=== PATIENT | female | born 1950 ===

== ENCOUNTER 2017-12-05 18:13 | Emergency (ER) | payer BC, MEDICARE ==
[2017-12-05 18:14] VITALS: BMI 23.8
[2017-12-05 18:36] VITALS: RESP 18
[2017-12-05] MEDS ORDERED: Sodium Chloride 0.9% 500 ML IV STA (18:53)
[2017-12-05 19:37] LABS: BASO # 0.05 K/mm3 (0.0-2.0); BASO % 0.4 % (0.0-3.0); EOS # 0.2 (0.0-0.7); EOS % 1.8 % (1.5-5.0); GRAN # 7.51 (1.4-6.5); GRAN % 62.8 % (50.0-68.0); HEMOGLOBIN 14.8 g/dL (12.0-16.0); LYMPH # 3.3 (1.2-3.4); LYMPH % 27.1 % (22.0-35.0); MEAN CELL VOLUME 87.3 fl (80.0-105.0); MEAN CORPUSCULAR HEMOGLOBIN 29.8 pg (25.0-35.0); MEAN CORPUSCULAR HGB CONC 34.1 g/dl (31.0-37.0); MEAN PLATELET VOLUME 9.7 fl (7.0-11.0); MONO % 7.9 % (1.0-6.0); RBC 4.97 10^6/uL (3.5-6.1); RED CELL DISTRIBUTION WIDTH 12.7 % (11.5-14.5)
[2017-12-05 19:45] LABS: ALB/GLOB RATIO 1.5 (1.1-1.8); ALBUMIN 4.9 g/dL (3.0-4.8); ALT/SGPT 34 U/L (7-56); AST/SGOT 32 U/L (14-36); BLOOD UREA NITROGEN 11 mg/dL (7-21); CALCIUM 9.5 mg/dL (8.4-10.5); GFR NON-AFRICAN AMERICAN > 60
[2017-12-05] MEDS ORDERED: Iohexol 350 MG/100 ML VIAL ONE (20:05)
--- NOTE | 2017-12-05 20:48 | ED PDOC ---
Arrival/HPI - General Chief Complaint: ENT Problem Time Seen by Provider: 12/05/17 18:28 Historian: Patient - History of Present Illness Narrative History of Present Illness (Text): 12/05/17 20:48 67yr old female presents today with right sided face pain. pt states she was eating a salad with lemon and noticed that the saliva increased and then she suddenly developed severe pain and swelling to the right side of the neck and face around the parotid gland. pt denies fever/chills. denies dental pain. pt states she has hx of TMJ but states the pain is different. pt denies dizziness or weakness. no medications were taken for pain at home. no other complaints. Past Medical History - Provider Review Nursing Documentation Reviewed: Yes - Travel History Have you recently traveled outside [place] w/in the past 3 mons?: No - Infectious Disease Hx of Infectious Diseases: None - Tetanus Immunization Tetanus Immunization: Unknown - Reproductive Menopause: No - Cardiac Hx Cardiac Disorders: Yes Hx Hypertension: Yes - Pulmonary Hx Chronic Obstructive Pulmonary Disease (COPD): Yes - Neurological Hx Neurological Disorder: No Other/Comment: AAOX3 - HEENT Hx HEENT Disorder: No - Renal Hx Renal Disorder: No - Endocrine/Metabolic Hx Endocrine Disorders: No - Hematological/Oncological Hx Blood Disorders: No Hx Blood Transfusions: No - Integumentary Hx Dermatological Disorder: No - Musculoskeletal/Rheumatological Hx Arthritis: Yes - Gastrointestinal Hx Gastrointestinal Disorders: Yes Hx Colitis: Yes (last hospitalization- 2 weeks ago) Other/Comment: c.diff - Genitourinary/Gynecological Hx Genitourinary Disorders: No - Psychiatric Hx Psychophysiologic Disorder: No Hx Substance Use: No - Surgical History Hx Appendectomy: Yes Hx Cholecystectomy: Yes Hx Tonsillectomy: Yes - Anesthesia Hx Anesthesia: Yes Hx Anesthesia Reactions: No Hx Malignant Hyperthermia: No - Suicidal Assessment Feels Threatened In Home Enviroment: No Family/Social History - Physician Review Nursing Documentation Reviewed: Yes Family/Social History: Unknown Family HX Smoking Status: Former Smoker Hx Alcohol Use: No Hx Substance Use: No Allergies/Home Meds Allergies/Adverse Reactions: Allergies vancomycin Allergy (Severe, Verified 12/06/15 17:23) RASH codeine Allergy (Verified 12/05/17 18:36) RASH moxifloxacin HCl [From Avelox] Allergy (Verified 12/05/17 18:36) RASH Home Medications: Home Meds Medication Instructions Recorded Confirmed Clopidogrel [Plavix] 75 mg PO DAILY 11/23/13 12/06/15 Rosuvastatin Calcium [Crestor] 10 mg PO DAILY 12/06/15 12/06/15 Review of Systems - Review of Systems Constitutional: absent: Fatigue, Fevers ENT: Other (right sided facial pain/ swelling). absent: Sore Throat, Sinus Congestion Respiratory: absent: SOB, Cough Cardiovascular: absent: Chest Pain, Palpitations Gastrointestinal: absent: Abdominal Pain, Nausea, Vomiting Genitourinary Female: absent: Dysuria, Frequency, Hematuria Musculoskeletal: Neck Pain. absent: Arthralgias, Back Pain Skin: absent: Rash, Pruritis Neurological: absent: Headache, Dizziness Psychiatric: absent: Anxiety, Depression Physical Exam Vital Signs Reviewed: Yes Vital Signs Temp Pulse Resp BP Pulse Ox 12/05/17 21:32 98 F 60 18 142/73 97 12/05/17 18:30 98.3 F 54 L 18 150/76 98 Temperature: Afebrile Blood Pressure: Normal Pulse: Regular Respiratory Rate: Normal Appearance: Positive for: Well-Appearing, Non-Toxic, Comfortable Pain Distress: None Mental Status: Positive for: Alert and Oriented X 3 - Systems Exam Head: Present: Atraumatic, Swelling (+ swelling and tenderness noted to the right parotid gland and lateral neck. ) Mouth: Present: Moist Mucous Membranes Neck: Present: Normal Range of Motion Respiratory/Chest: Present: Clear to Auscultation, Good Air Exchange. No: Respiratory Distress, Accessory Muscle Use Cardiovascular: Present: Regular Rate and Rhythm, Normal S1, S2. No: Murmurs Abdomen: No: Tenderness, Distention Upper Extremity: Present: Normal ROM Lower Extremity: Present: Normal ROM Neurological: Present: GCS=15, Speech Normal Skin: Present: Warm, Dry, Normal Color. No: Rashes Psychiatric: Present: Alert, Oriented x 3 Medical Decision Making ED Course and Treatment: 12/05/17 21:13 67yr old female with right sided facial pain and swelling. cbc; wbc: 12 cmp; wnl soft tissue neck ct with contrast; FINDINGS: Oropharynx: Unremarkable. No significant tonsillar enlargement. No peritonsillar abscess. Hypopharynx: Unremarkable. Larynx: Unremarkable. Normal epiglottis. Trachea: Unremarkable. Retropharyngeal space: Unremarkable. Submandibular/parotid glands: There is some mild inflammation and enhancement in the right parotid gland and in the bilateral submandibular glands which may be due to sialoadenitis. No stones identified. Thyroid: Unremarkable. No enlarged or calcified nodules. Bones/joints: No acute fracture. Soft tissues: Unremarkable. Vasculature: Atherosclerotic disease. Lymph nodes: Unremarkable. No lymphadenopathy. Lung apices: Unremarkable as visualized. IMPRESSION: There is some mild inflammation and enhancement in the right parotid gland and in the bilateral submandibular glands which may be due to sialoadenitis. No stones identified. pt given toradol for pain. pt reassessment; pt feeling better with medications; will place patient on abx and d/c home to f/u with ENT. Patient verbalizes understanding of discharge instructions and need for immediate followup. all aspects of this case were discussed the attending of record. impression: sialoadenitis, parotiditis augmentin 1 tablet twice daily x 7 days lemon juice or sour lozenges motrin every 6 hours as needed for pain Increase fluids Follow up with the ENT specialist within the next 2 days Return immediately if symptoms worsen, persist or if new symptoms develop - Lab Interpretations Lab Results: 12/05/17 19:30 12/05/17 19:30 Lab Results 12/05/17 19:30: WBC 12.0 H, RBC 4.97, Hgb 14.8, Hct 43.4, MCV 87.3, MCH 29.8, MCHC 34.1, RDW 12.7, Plt Count 325, MPV 9.7, Gran % 62.8, Lymph % (Auto) 27.1, Russell % (Auto) 7.9 H, Eos % (Auto) 1.8, Baso % (Auto) 0.4, Gran # 7.51 H, Lymph # (Auto) 3.3, Russell # (Auto) 1.0 H, Eos # (Auto) 0.2, Baso # (Auto) 0.05 12/05/17 19:30: Sodium 141, Potassium 3.8, Chloride 104, Carbon Dioxide 27, Anion Gap 14, BUN 11, Creatinine 0.5 L, Est GFR ( Amer) > 60, Est GFR ( Non-Af Amer) > 60, Random Glucose 98, Calcium 9.5, Total Bilirubin 0.5, AST 32, ALT 34, Alkaline Phosphatase 114, Total Protein 8.1, Albumin 4.9 H, Globulin 3.2 , Albumin/Globulin Ratio 1.5 - RAD Interpretation Radiology Orders: 12/05/17 18:53 NECK SOFT TISSUE W/CONTRAST [CT] Stat - Medication Orders Current Medication Orders: Discontinued Medications Sodium Chloride (Sodium Chloride 0.9%) 500 mls @ 999 mls/hr IV .Q31M STA Stop: 12/05/17 19:23 Last Admin: 12/05/17 19:23 Dose: 999 mls/hr eMAR Start Stop Document 12/05/17 19:23 EQ (Rec: 12/05/17 19:23 EQ [id number]) Intravenous Solution Start Date 12/05/17 Start Time 19:23 Ketorolac Tromethamine (Toradol) 15 mg IVP STAT STA Stop: 12/05/17 18:54 Last Admin: 12/05/17 19:23 Dose: 15 mg MAR Pain Assessment Document 12/05/17 19:23 EQ (Rec: 12/05/17 19:23 EQ [id number]) Pain Reassessment Is this a pain reassessment? No Sleep Is patient sleeping during reassessment? No Presence of Pain Presence of Pain Yes IVP Administration Document 12/05/17 19:23 EQ (Rec: 12/05/17 19:23 EQ [id number]) Charges for Administration # of IVP Administrations 1 Disposition/Present on Arrival - Present on Arrival Any Indicators Present on Arrival: No History of DVT/PE: No History of Uncontrolled Diabetes: No Urinary Catheter: No History of Decub. Ulcer: No History Surgical Site Infection Following: None - Disposition Have Diagnosis and Disposition been Completed?: Yes Diagnosis: Parotiditis, Sialoadenitis Disposition: HOME/ ROUTINE Disposition Time: 22:00 Patient Plan: Discharge Condition: GOOD Discharge Instructions (ExitCare): Salivary Gland Infection (DC), Parotitis Additional Instructions: augmentin 1 tablet twice daily x 7 days lemon juice or sour lozenges motrin every 6 hours as needed for pain Increase fluids Follow up with the ENT specialist within the next 2 days Return immediately if symptoms worsen, persist or if new symptoms develop;high fevers, increasing pain, redness, swelling or if any other concerning symptoms develop. Prescriptions: Amoxicillin/Clavulanate [Augmentin 875 MG-125 MG] 1 tab PO BID #14 tab Referrals: Kevin Grimm DO [[facility]] - Follow up with primary Amie Weathers MD [Medical Doctor] - Follow up with primary [facility] [Outside] - Follow up with primary Forms: [employer] (Belizean)
[2017-12-05 21:33] VITALS: BP 142/73; PULSE 60; TEMP 98; O2SAT 97
--- NOTE | 2017-12-06 07:33 | CT ---
Date of service: 12/05/2017 PROCEDURE: CT NECK WITH CONTRAST HISTORY: right sided parotid/salivary gland pain/swelling COMPARISON: None available. TECHNIQUE: CT of the neck with intravenous contrast. Coronal and sagittal reformats generated. Intravenous contrast dose: 0 Radiation dose: DLP 379.34 mGy-cm This CT exam was performed using one or more of the following dose reduction techniques: Automated exposure control, adjustment of the mA and/or kV according to patient size, and/or use of iterative reconstruction technique. FINDINGS: NASOPHARYNX: Unremarkable. SUPRAHYOID NECK: The assessment of the oral cavity is somewhat limited due to streak artifact from the teeth fillings. Otherwise unremarkable Oropharynx, oral cavity, parapharyngeal space and retropharyngeal space. INFRAHYOID NECK: Unremarkable larynx, hypopharynx, and supraglottic space. Vocal cords intact. MASS: None. GLANDS: Mildly swelling and inflammatory changes noted in the right parotid gland and in the bilateral submandibular glands which may be due to sialoadenitis. Normal size thyroid gland, without nodule. LYMPH NODES: Normal. No lymphadenopathy. CERVICAL SPINE: No fracture or focal lesion. Posterior osteophyte disc bulge complex noted at C5-C6. VASCULAR STRUCTURES: Unremarkable. OTHER FINDINGS: None. IMPRESSION: Mild swelling and inflammatory changes with increased enhancement noted in the right parotid gland and in the bilateral submandibular glands may represent sialadenitis. Assessment of the oral cavity for possible stone is somewhat limited due to streak artifact from the teeth fillings. No overt dilated submandibular or parotid gland ducts or large stone noted in this study. Preliminary report was submitted by [facility].
== END 2017-12-05 22:50 | disposition home or self-care (01) ==
LOC: ED 18:13
DX: K11.20 Sialoadenitis, unspecified (principal); I10 Essential (primary) hypertension; Z87.891 Personal history of nicotine dependence
CPT/HCPCS: 70491; 80053; 85025; 96374; 99283; J1885; J7040; Q9967